=== PATIENT | male | born 1940 | race Caucasian/White ===

== ENCOUNTER 2021-05-03 08:02 | Outpatient (CLI) | payer OTHER, SELFPAY ==
--- NOTE | 2021-05-03 08:23 | MR_ITS ---
WS: [id number] MRI LUMBAR SPINE NONCONTRAST HISTORY: PAIN DOWN LEFT LEG FOR SEVERAL MONTHS COMPARISON: None available. TECHNIQUE: Sagittal and axial multisequence imaging is submitted. Moderate degenerative changes in the cervical spine. Disc space narrowing with osteophytes. No cord c ompression. Very mild RIGHT curvature lumbar spine. Posterior alignment is normal. No fracture or marrow edema. Mild disc space narrowing and desiccation throughout, most significant at L5-S1. Conus terminates normally at L1. L1-L2: Mild osteophytic ridging and annular disc bulging. Mild facet and ligamentum flavum hypertroph y. No stenosis. L2-L3: Mild annular disc bulging and osteophytic ridging. Mild ligamentum flavum and facet arthritis. L3-L4: Mild annular disc bulging and osteophytic ridging. Moderate bilateral facet joint arthritis, L EFT greater than RIGHT. No focal disc protrusion. Very mild encroachment into the subarticular recess es. L4-L5: Mild annular disc bulging and osteophytic ridging. Moderate bilateral ligamentum flavum and fa cet hypertrophy. Small amount of fluid in the facet joints. No significant stenosis. Mild encroachmen t into the subarticular recesses. L5-S1: Moderate annular disc bulging and osteophytic ridging. Moderate facet joint arthritis. There i s disc and osteophyte encroachment into the foramina bilaterally. Mild contact on the exiting L5 nerv e roots bilaterally. Mild to moderate foraminal stenosis. Soft tissues are normal. MR/MR lumbar spine wo con* [id number] IMPRESSION: 1. 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 Very minimal contact on the exiting L 5 nerve roots. 2. Minimal encroachment into the subarticular recesses of L3-4 and L4-5 withou t nerve root contact. 3. No acute fracture. 4. 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
== END 2021-05-03 08:03 | disposition home or self-care (01) ==
PROVIDERS: Visit Provider Nurse Practitioner
DX: M79.605 Pain in left leg (principal); M48.07 Spinal stenosis, lumbosacral region; M25.78 Osteophyte, vertebrae; M47.816 Spondylosis without myelopathy or radiculopathy, lumbar region
CPT/HCPCS: 72148

== ENCOUNTER → 2021-06-01 10:04 | Outpatient (BNVA) | payer OTHER, SELFPAY | PROVIDERS: Referring Provider Nurse Practitioner; Visit Provider Anesthesiology Pain Medicine | DX: M47.816 Spondylosis without myelopathy or radiculopathy, lumbar region (principal); M51.16 Intervertebral disc disorders with radiculopathy, lumbar region; M79.605 Pain in left leg | CPT/HCPCS: 99205 ==

== ENCOUNTER → 2021-07-05 13:44 | Outpatient (BNVA) | payer OTHER, SELFPAY | PROVIDERS: Visit Provider Anesthesiology Pain Medicine | DX: M54.16 Radiculopathy, lumbar region (principal) | CPT/HCPCS: 64483; 64484; J1100; J3490 ==

== ENCOUNTER → 2021-08-12 11:10 | Outpatient (BNVA) | payer OTHER, SELFPAY | PROVIDERS: Visit Provider Anesthesiology Pain Medicine | DX: M47.816 Spondylosis without myelopathy or radiculopathy, lumbar region (principal); M51.16 Intervertebral disc disorders with radiculopathy, lumbar region; M79.605 Pain in left leg | CPT/HCPCS: 99213 ==

== ENCOUNTER → 2021-08-17 14:26 | Outpatient (BNVA) | payer OTHER, SELFPAY | PROVIDERS: PCP Family Medicine; Visit Provider Anesthesiology Pain Medicine | DX: M54.16 Radiculopathy, lumbar region (principal) | CPT/HCPCS: 64483; 64484; J1100; J3490 ==

== ENCOUNTER → 2021-08-31 10:38 | Outpatient (BNVA) | payer OTHER, SELFPAY | PROVIDERS: PCP Family Medicine; Visit Provider Anesthesiology Pain Medicine | DX: M47.816 Spondylosis without myelopathy or radiculopathy, lumbar region (principal); M51.16 Intervertebral disc disorders with radiculopathy, lumbar region; M79.605 Pain in left leg | CPT/HCPCS: 99214 ==

== ENCOUNTER → 2021-09-08 14:21 | Outpatient (BNVA) | payer OTHER, SELFPAY | PROVIDERS: PCP Family Medicine; Visit Provider Anesthesiology Pain Medicine | DX: M47.816 Spondylosis without myelopathy or radiculopathy, lumbar region (principal) | CPT/HCPCS: 64493; 64494; 64495; J3490 ==

== ENCOUNTER → 2021-09-22 10:43 | Outpatient (BNVA) | payer OTHER, SELFPAY | PROVIDERS: PCP Family Medicine; Visit Provider Anesthesiology Pain Medicine | DX: M47.816 Spondylosis without myelopathy or radiculopathy, lumbar region (principal); M51.16 Intervertebral disc disorders with radiculopathy, lumbar region; M79.605 Pain in left leg | CPT/HCPCS: 99214 ==

== ENCOUNTER → 2021-11-30 10:25 | Outpatient (BNVA) | payer OTHER, SELFPAY | PROVIDERS: PCP Family Medicine; Visit Provider Anesthesiology Pain Medicine | DX: M47.816 Spondylosis without myelopathy or radiculopathy, lumbar region (principal); M51.16 Intervertebral disc disorders with radiculopathy, lumbar region; M79.605 Pain in left leg | CPT/HCPCS: 99214 ==

== ENCOUNTER → 2024-06-17 09:19 | Outpatient (BNVA) | payer OTHER, SELFPAY | PROVIDERS: PCP Family Medicine; Visit Provider Internal Medicine | DX: E03.9 Hypothyroidism, unspecified (principal); R49.0 Dysphonia | CPT/HCPCS: 82310; 83970; 84439; 84443; 99204 ==

== ENCOUNTER 2024-06-25 14:05 | Outpatient (CLI) | payer OTHER, SELFPAY ==
--- NOTE | 2024-06-25 14:30 | US_ITS ---
WS: [id number] THYROID ULTRASOUND HISTORY: hoarseness COMPARISON: None available. Right lobe: 0.9 cm x 1.3 cm x 3.9 cm (w x ap x l). Volume: 2.3 cm3. Small caliber heterogeneous thyroid. There are a few small colloid cysts. No dominant solid mass. Left lobe: 1.2 cm x 1.5 cm x 4.2 cm (w x ap x l). Volume: 3.8 cm3. Small caliber thyroid. Heterogeneous gland. No mass. Isthmus: 0.2 cm. US/US thyroid [id number] IMPRESSION: 1. Mildly atrophic heterogeneous gland. 2. No thyroid mass.
== END 2024-06-25 14:06 | disposition home or self-care (01) ==
LOC: RAD 14:07
PROVIDERS: PCP Family Medicine; Visit Provider Internal Medicine
DX: E03.9 Hypothyroidism, unspecified (principal); R49.0 Dysphonia; E03.4 Atrophy of thyroid (acquired); E04.1 Nontoxic single thyroid nodule
CPT/HCPCS: 76536

== ENCOUNTER → 2025-01-03 07:37 | Outpatient (BNVA) | payer OTHER, SELFPAY | PROVIDERS: PCP Family Medicine; Visit Provider Internal Medicine | DX: E03.9 Hypothyroidism, unspecified (principal); R49.0 Dysphonia | CPT/HCPCS: 36415; 84439; 84443; 99214 ==